=== PATIENT | male | born 1950 | race Asian ===

== ENCOUNTER 2018-08-09 07:13 | Emergency (ER) | payer MEDICARE, MEDICAID ==
[~2018-08-09] VITALS: Ht 149.9 cm; Wt 53.0 kg
[2018-08-09 10:21] LABS: BASOPHILS % 0.4 % (0.0-2.0); EOSINOPHILS % 3.3 % (0.0-5.0); HEMATOCRIT. 45.9 % (42.0-52.0); HEMOGLOBIN. 15.5 g/dL (14.0-18.0); LYMPHOCYTES % 23.2 % (20.0-50.0); MEAN CORPUSCULAR HEMOGLOBIN 32.1 pg (28.0-32.0); MEAN CORPUSCULAR VOLUME 94.9 fL (80.0-94.0); MONOCYTES % 6.5 % (2.0-8.0); NEUTROPHILS % 66.6 % (40.0-76.0); PLATELET 166 x1000/uL (130-400); RED BLOOD CELL COUNT 4.83 mill/uL (4.7-6.1); RED CELL DISTRIBUTION WIDTH 12.7 % (11.6-14.6)
[2018-08-09 10:27] LABS: CHLORIDE 107 mEq/L (98-107)
[2018-08-09 10:28] LABS: PROTHROMBIN TIME 10.3 sec (9.1-11.1)
[2018-08-09 13:15] VITALS: BP 116/56
== END 2018-08-09 13:15 | disposition home or self-care (01) ==
LOC: ER 07:37
DX: K94.21 Gastrostomy hemorrhage (principal); J44.9 Chronic obstructive pulmonary disease, unspecified; I10 Essential (primary) hypertension; K58.9 Irritable bowel syndrome, unspecified; G82.50 Quadriplegia, unspecified; K21.9 Gastro-esophageal reflux disease without esophagitis; M81.0 Age-related osteoporosis without current pathological fracture; J98.11 Atelectasis; Z88.2 Allergy status to sulfonamides; Z91.041 Radiographic dye allergy status; Y83.3 Surgical operation with formation of external stoma as the cause of abnormal reaction of the patient, or of later complication, without mention of misadventure at the time of the procedure; Y92.128 Other place in nursing home as the place of occurrence of the external cause
CPT/HCPCS: 36415; 71045; 93005; 99284

== ENCOUNTER 2022-01-14 11:16 | Inpatient (IN) | payer MEDICARE, MEDICAID ==
[~2022-01-14] VITALS: Ht 142.2 cm; Wt 53.1 kg
[2022-01-14] MEDS: IPRATROPIUM/ALBUTEROL 0.5-3(2.5)MG/3ML NEB HHN SCH (09:40)
[2022-01-14 12:19] LABS: BG BASE EXCESS 5.8 mmol/L (-2.0-2.0); BG CARBOXYHEMOGLOBIN 1.1 % (0.5-1.5); BG DEOXYHEMOGLOBIN 1.8 % (0.0-5.0); BG FRACTION INSPIRED OXYGEN 36; BG HCO3 ACT 33.8 mmol/L (22.0-26.0); BG METHEMOGLOBIN 0.4 % (0.0-1.5); BG OXYGEN SATURATION 98.2 % (92.0-98.5); BG OXYHEMOGLOBIN 96.7 % (94.0-97.0); BG PCO2 65.2 mmHg (35.0-45.0); BG PH 7.333 (7.350-7.450); BG SAMPLE SITE RIGHT BRACHIAL; BG TOTAL HEMOGLOBIN 13.7 g/dL (12.0-18.0); BG VENT MODE NASAL CANNULA
[2022-01-14] MEDS ORDERED: SODIUM CHLORIDE 0.9% 1,000 ML IV ONE (12:30)
[2022-01-14] MEDS ORDERED: LIDOCAINE HCL 1% 10 MG/ML 10ML VIAL ONE (12:48)
[2022-01-14 13:23] LABS: BASOPHILS % 0.2 % (0.0-2.0); EOSINOPHILS % 3.2 % (0.0-5.0); HEMATOCRIT. 42.1 % (42.0-52.0); HEMOGLOBIN. 13.2 g/dL (14.0-18.0); LYMPHOCYTES % 22.9 % (20.0-50.0); MEAN CORPUSCULAR HEMOGLOBIN 31.6 pg (28.0-32.0); MEAN CORPUSCULAR VOLUME 101.1 fL (80.0-94.0); MEAN PLATELET VOLUME 11.3 fl (7.4-10.4); MONOCYTES % 9.9 % (2.0-8.0); NEUTROPHILS % 63.8 % (40.0-76.0); PLATELET 154 x1000/uL (130-400); RED BLOOD CELL COUNT 4.16 mill/uL (4.7-6.1); RED CELL DISTRIBUTION WIDTH 15.9 % (11.6-14.6)
[2022-01-14 13:29] LABS: CHLORIDE 118 mEq/L (98-107)
[2022-01-14 13:32] LABS: PROTHROMBIN TIME 10.9 sec (9.6-11.0)
[2022-01-14 16:00] LABS: CLARITY URINE CLOUDY (CLEAR); COLOR URINE YELLOW (YELLOW); KETONES URINE NEGATIVE (NEGATIVE); LEUKOCYTE ESTERASE URINE 3+ (NEGATIVE); NITRITE URINE NEGATIVE (NEGATIVE); OCCULT BLOOD URINE TRACE (NEGATIVE); PH URINE 5.5 (4.5-8.0); PROTEIN URINE 1+ (NEGATIVE); SPECIFIC GRAVITY URINE 1.022 (1.005-1.030)
[2022-01-14] MEDS ORDERED: CEFTRIAXONE 1 G PREMIX 50 ML IV ONE (16:15)
[2022-01-14] MEDS ORDERED: MORPHINE SULFATE 2 MG/ML CPJ (NOT FOR IM USE) IV PRN (21:00)
[2022-01-14] MEDS ORDERED: ONDANSETRON HCL 4MG/2ML INJ IV PRN (21:00)
[2022-01-14] MEDS ORDERED: GUAIFENESIN 200MG/10ML SUGAR FREE UDC PO PRN (21:00)
[2022-01-14] MEDS ORDERED: DOCUSATE SODIUM 100MG CAPSULE PO PRN (21:00)
[2022-01-14] MEDS ORDERED: CLONIDINE 0.1MG TABLET PO PRN (21:00)
[2022-01-14] MEDS ORDERED: ACETAMINOPHEN 650MG SUPP PR PRN ×2 (21:00)
[2022-01-14] MEDS ORDERED: ACETAMINOPHEN 325MG TABLET PO PRN (21:00)
[2022-01-14] MEDS ORDERED: MAGNESIUM/ALUMINUM HYDROXIDE/SIMETHICONE 30ML UDC PO PRN (21:00)
[2022-01-14 22:00] VITALS: BP_SYST 124; BP_DIAS 73; BP_DIAS 75
[2022-01-14] MEDS: LACTATED RINGERS 1,000 ML IV SCH (23:28)
[2022-01-14] MEDS: ENOXAPARIN 40MG/0.4ML SYR SUBCUT SCH (23:28)
[2022-01-15] VITALS: BP 124/71
[2022-01-15 04:00] VITALS: BP 131/73
[2022-01-15] MEDS ORDERED: CEFTRIAXONE 1 G PREMIX 50 ML IV SCH (09:00)
[2022-01-15] MEDS: LACTATED RINGERS 1,000 ML IV SCH ×2 (09:17→17:46)
[2022-01-15] MEDS: IPRATROPIUM/ALBUTEROL 0.5-3(2.5)MG/3ML NEB HHN SCH ×3 (09:45→21:14)
[2022-01-15 11:58] LABS: HEMATOCRIT. 38.8 % (42.0-52.0); HEMOGLOBIN. 12.7 g/dL (14.0-18.0); MEAN CORPUSCULAR HEMOGLOBIN 32.1 pg (28.0-32.0); RED BLOOD CELL COUNT 3.96 mill/uL (4.7-6.1); RED CELL DISTRIBUTION WIDTH 15.3 % (11.6-14.6)
[2022-01-15 12:00] VITALS: BP 126/61
[2022-01-15 12:20] LABS: CHLORIDE 121 mEq/L (98-107)
[2022-01-15 12:32] LABS: BETA HYDROXYBUTYRATE 0.6 mMol/L (0.0-0.3); CREATINE KINASE 169 IU/L (39-308); HDL CHOLESTEROL 28 mg/dL (40-59); LDL CHOLESTEROL 77 mg/dL (5-100)
[2022-01-15 12:51] LABS: PLATELET 217 x1000/uL (130-400)
[2022-01-15 12:55] LABS: PLATELET ESTIMATE NORMAL
[2022-01-15 16:00] VITALS: BP 117/68
[2022-01-15] MEDS: CEFTRIAXONE 1,000 MG in DEXTROSE 5% WATER 50 ML IV SCH (17:46)
[2022-01-15] MEDS ORDERED: NALOXONE HCL 0.4MG/ML VIAL IV PRN (18:00)
[2022-01-15 20:00] VITALS: BP 143/70
[2022-01-15] MEDS: ENOXAPARIN 40MG/0.4ML SYR SUBCUT SCH (21:26)
[2022-01-15] MEDS: LACTULOSE 20G/30ML UDC PO SCH (22:12)
[2022-01-15] MEDS: RIFAXIMIN 550 MG TABLET PO SCH (23:25)
[2022-01-15 23:27] LABS: ETHANOL BLOOD < 10 mg/dL; T4 FREE 1.23 ng/dL (0.76-1.46)
[2022-01-15 23:37] LABS: FOLIC ACID (FOLATE) SERUM >20 ng/mL ng/mL (>5.38); VITAMIN B12 SERUM 630 pg/mL (211-911)
[2022-01-15 23:46] VITALS: BP 132/78
[2022-01-16] MEDS: IPRATROPIUM/ALBUTEROL 0.5-3(2.5)MG/3ML NEB HHN SCH ×4 (00:39→21:11)
[2022-01-16 04:00] VITALS: BP 131/75
[2022-01-16] MEDS: LACTATED RINGERS 1,000 ML IV SCH (05:25)
[2022-01-16] MEDS: LACTULOSE 20G/30ML UDC PO SCH ×3 (05:25→22:06)
[2022-01-16 06:34] LABS: BASOPHILS % 0.1 % (0.0-2.0); EOSINOPHILS % 1.2 % (0.0-5.0); HEMATOCRIT. 38.3 % (42.0-52.0); HEMOGLOBIN. 12.5 g/dL (14.0-18.0); LYMPHOCYTES % 8.2 % (20.0-50.0); MEAN CORPUSCULAR VOLUME 98.2 fL (80.0-94.0); MEAN PLATELET VOLUME 11.3 fl (7.4-10.4); MONOCYTES % 5.2 % (2.0-8.0); NEUTROPHILS % 85.3 % (40.0-76.0); PLATELET 150 x1000/uL (130-400); RED CELL DISTRIBUTION WIDTH 14.9 % (11.6-14.6)
[2022-01-16 06:44] LABS: CHLORIDE 121 mEq/L (98-107)
[2022-01-16 06:57] LABS: CREATINE KINASE 16 IU/L (39-308)
[2022-01-16] MEDS: POTASSIUM CHLORIDE 20MEQ/PACKET PO SCH ×2 (07:15→23:56)
[2022-01-16 08:00] VITALS: BP 137/77
[2022-01-16] MEDS ORDERED: POLYETHYLENE GLYCOL 3350 (17GM) 1 DOSE PACK PO SCH (09:00)
[2022-01-16] MEDS: RIFAXIMIN 550 MG TABLET PO SCH ×2 (09:50→22:06)
[2022-01-16 11:54] LABS: *AMPHETAMINES SCREEN URINE NEGATIVE (NEGATIVE); *BARBITURATES SCREEN URINE NEGATIVE (NEGATIVE); *BENZODIAZEPINES SCREEN URINE NEGATIVE (NEGATIVE); *COCAINE SCREEN URINE NEGATIVE (NEGATIVE); CANNABINOID URINE SCREEN NEGATIVE (NEGATIVE); METHADONE URINE SCREEN NEGATIVE (NEGATIVE); OPIATES URINE SCREEN NEGATIVE (NEGATIVE); PHENCYCLIDINE URINE SCREEN NEGATIVE (NEGATIVE)
[2022-01-16 12:00] VITALS: BP 134/71
[2022-01-16 16:00] VITALS: BP 135/75
[2022-01-16] MEDS: DEXTROSE 5% WATER 1,000 ML IV SCH ×2 (17:15→22:20)
[2022-01-16] MEDS: CEFTRIAXONE 1,000 MG in DEXTROSE 5% WATER 50 ML IV SCH (17:45)
[2022-01-16 20:00] VITALS: BP 124/48
[2022-01-16] MEDS: ENOXAPARIN 40MG/0.4ML SYR SUBCUT SCH (22:07)
[2022-01-16] MEDS ORDERED: POTASSIUM CHLORIDE 20MEQ/PACKET PO NR (23:30)
[2022-01-17] VITALS: BP 105/52
[2022-01-17] MEDS: ACETAMINOPHEN 325MG TABLET PO PRN ×2 (00:10→16:58)
[2022-01-17] MEDS: IPRATROPIUM/ALBUTEROL 0.5-3(2.5)MG/3ML NEB HHN SCH ×4 (02:38→20:01)
[2022-01-17] MEDS: DEXTROSE 5% WATER 1,000 ML IV SCH ×3 (03:15→23:26)
[2022-01-17 04:00] VITALS: BP 112/55
[2022-01-17] MEDS: LACTULOSE 20G/30ML UDC PO SCH ×3 (06:05→21:26)
[2022-01-17 08:00] VITALS: BP 124/58
[2022-01-17] MEDS: RIFAXIMIN 550 MG TABLET PO SCH ×2 (08:29→21:26)
[2022-01-17 09:28] LABS: BASOPHILS % 0.2 % (0.0-2.0); EOSINOPHILS % 1.8 % (0.0-5.0); HEMATOCRIT. 36.3 % (42.0-52.0); HEMOGLOBIN. 11.5 g/dL (14.0-18.0); LYMPHOCYTES % 10.2 % (20.0-50.0); MEAN CORPUSCULAR HEMOGLOBIN 31.4 pg (28.0-32.0); MEAN PLATELET VOLUME 10.8 fl (7.4-10.4); MONOCYTES % 3.8 % (2.0-8.0); PLATELET 119 x1000/uL (130-400); RED BLOOD CELL COUNT 3.66 mill/uL (4.7-6.1); RED CELL DISTRIBUTION WIDTH 15.4 % (11.6-14.6)
[2022-01-17 09:36] LABS: CHLORIDE 119 mEq/L (98-107)
[2022-01-17 12:00] VITALS: BP 125/40
[2022-01-17 16:00] VITALS: BP 112/54
[2022-01-17] MEDS: CEFTRIAXONE 1,000 MG in DEXTROSE 5% WATER 50 ML IV SCH (17:01)
[2022-01-17 20:00] VITALS: BP 102/59
[2022-01-17] MEDS: ENOXAPARIN 40MG/0.4ML SYR SUBCUT SCH (21:26)
[2022-01-18] VITALS: BP 110/84
[2022-01-18] MEDS: IPRATROPIUM/ALBUTEROL 0.5-3(2.5)MG/3ML NEB HHN SCH ×4 (01:23→20:38)
[2022-01-18 04:00] VITALS: BP 115/60
[2022-01-18] MEDS: LACTULOSE 20G/30ML UDC PO SCH ×3 (05:47→22:00)
[2022-01-18 07:32] LABS: BASOPHILS % 0.2 % (0.0-2.0); EOSINOPHILS % 4.6 % (0.0-5.0); HEMATOCRIT. 34.9 % (42.0-52.0); HEMOGLOBIN. 11.7 g/dL (14.0-18.0); LYMPHOCYTES % 10.9 % (20.0-50.0); MEAN CORPUSCULAR HEMOGLOBIN 31.9 pg (28.0-32.0); MEAN CORPUSCULAR VOLUME 95.1 fL (80.0-94.0); MEAN PLATELET VOLUME 11.7 fl (7.4-10.4); MONOCYTES % 4.3 % (2.0-8.0); PLATELET 107 x1000/uL (130-400); RED BLOOD CELL COUNT 3.67 mill/uL (4.7-6.1); RED CELL DISTRIBUTION WIDTH 14.9 % (11.6-14.6)
[2022-01-18 07:49] LABS: CHLORIDE 116 mEq/L (98-107)
[2022-01-18 08:00] VITALS: BP 114/67
[2022-01-18] MEDS ORDERED: LEVO500T90 MT (08:00)
[2022-01-18] MEDS: RIFAXIMIN 550 MG TABLET PO SCH ×2 (08:49→21:00)
[2022-01-18] MEDS: DEXTROSE 5% WATER 1,000 ML IV SCH ×2 (08:49→22:48)
[2022-01-18] MEDS ORDERED: POTASSIUM CHLORIDE 20MEQ TABLET SR PO SCH (09:00)
[2022-01-18] MEDS ORDERED: POTASSIUM CHLORIDE 20MEQ/PACKET GT NR (09:30)
[2022-01-18 12:00] VITALS: BP 120/70
[2022-01-18 12:10] LABS: PHOSPHORUS 2.2 mg/dL (2.5-4.9)
[2022-01-18 16:00] VITALS: BP 140/60
[2022-01-18 20:00] VITALS: BP 103/62
[2022-01-18] MEDS: ENOXAPARIN 40MG/0.4ML SYR SUBCUT SCH (22:07)
[2022-01-19] VITALS: BP 100/60
[2022-01-19] MEDS: IPRATROPIUM/ALBUTEROL 0.5-3(2.5)MG/3ML NEB HHN SCH ×4 (01:05→21:53)
[2022-01-19 04:00] VITALS: BP 119/58
[2022-01-19] MEDS: LACTULOSE 20G/30ML UDC PO SCH ×2 (05:24→14:00)
[2022-01-19 07:10] LABS: BASOPHILS % 0.2 % (0.0-2.0); EOSINOPHILS % 2.7 % (0.0-5.0); HEMATOCRIT. 33.3 % (42.0-52.0); LYMPHOCYTES % 10.7 % (20.0-50.0); MEAN CORPUSCULAR HEMOGLOBIN 31.6 pg (28.0-32.0); MEAN CORPUSCULAR VOLUME 95.7 fL (80.0-94.0); MEAN PLATELET VOLUME 11.8 fl (7.4-10.4); MONOCYTES % 5.2 % (2.0-8.0); NEUTROPHILS % 81.2 % (40.0-76.0); PLATELET 129 x1000/uL (130-400); RED BLOOD CELL COUNT 3.47 mill/uL (4.7-6.1); RED CELL DISTRIBUTION WIDTH 14.1 % (11.6-14.6)
[2022-01-19 07:13] LABS: CHLORIDE 113 mEq/L (98-107)
[2022-01-19 08:00] VITALS: BP_SYST 115; BP_SYST 125; BP_DIAS 58; BP_DIAS 62
[2022-01-19] MEDS: RIFAXIMIN 550 MG TABLET PO SCH (08:16)
[2022-01-19] MEDS: LEVOFLOXACIN 500MG TABLET PO SCH (08:16)
[2022-01-19 08:34] LABS: PHOSPHORUS 1.7 mg/dL (2.5-4.9)
[2022-01-19] MEDS: KCL 20MEQ/100ML PREMIX 100 ML IV SCH ×2 (11:17→14:06)
[2022-01-19 12:00] VITALS: BP 115/58
[2022-01-19] MEDS ORDERED: POTASSIUM PHOS,M-BASIC-D-BASIC 15 MMOL in DEXT 5% WATER 245 ML IV SCH (12:00)
[2022-01-19] MEDS: DEXTROSE 5% WATER 1,000 ML IV SCH ×2 (14:07→20:05)
[2022-01-19 16:00] VITALS: BP 140/71
[2022-01-19] MEDS: BLOOD SUGAR DIAGNOSTIC STRIP TEST SCH (18:59)
[2022-01-19 20:00] VITALS: BP 146/76
[2022-01-19] MEDS: PIPERACILLIN/TAZOBACTAM 3.375 G in DEXTROSE 5% WATER 50 ML IV SCH (21:27)
[2022-01-19] MEDS: ENOXAPARIN 40MG/0.4ML SYR SUBCUT SCH (21:27)
[2022-01-19] MEDS: NYSTATIN 100,000 UNITS/ML 5ML UDC SSP SCH (21:27)
[2022-01-19] MEDS: LACTULOSE 20G/30ML UDC PR SCH (22:22)
[2022-01-20] VITALS (7 sets, daily range): BP systolic 100–144; BP diastolic 20–78
[2022-01-20] MEDS: IPRATROPIUM/ALBUTEROL 0.5-3(2.5)MG/3ML NEB HHN SCH ×4 (01:37→20:03)
[2022-01-20] MEDS: PIPERACILLIN/TAZOBACTAM 3.375 G in DEXTROSE 5% WATER 50 ML IV SCH ×3 (05:22→21:14)
[2022-01-20] MEDS: BLOOD SUGAR DIAGNOSTIC STRIP TEST SCH ×4 (05:22→18:14)
[2022-01-20] MEDS: LACTULOSE 20G/30ML UDC PR SCH ×3 (05:22→21:14)
[2022-01-20] MEDS: DEXTROSE 5% WATER 1,000 ML IV SCH ×2 (05:23→16:05)
[2022-01-20 06:24] LABS: BASOPHILS % 0.1 % (0.0-2.0); EOSINOPHILS % 1.6 % (0.0-5.0); HEMATOCRIT. 35.3 % (42.0-52.0); HEMOGLOBIN. 11.9 g/dL (14.0-18.0); LYMPHOCYTES % 9.1 % (20.0-50.0); MEAN CORPUSCULAR HEMOGLOBIN 32.2 pg (28.0-32.0); MEAN CORPUSCULAR VOLUME 95.3 fL (80.0-94.0); MEAN PLATELET VOLUME 11.4 fl (7.4-10.4); NEUTROPHILS % 82.2 % (40.0-76.0); PLATELET 139 x1000/uL (130-400); RED CELL DISTRIBUTION WIDTH 14.1 % (11.6-14.6)
[2022-01-20 07:06] LABS: CHLORIDE 111 mEq/L (98-107)
[2022-01-20 07:16] LABS: PHOSPHORUS 2.1 mg/dL (2.5-4.9)
[2022-01-20] MEDS ORDERED: LIDOCAINE HCL/PF 1% 10 MG/ML 5ML VIAL ONE (09:18)
[2022-01-20 09:35] LABS: BG BASE EXCESS 3.8 mmol/L (-2.0-2.0); BG CARBOXYHEMOGLOBIN 0.3 % (0.5-1.5); BG FRACTION INSPIRED OXYGEN 100; BG HCO3 ACT 29.5 mmol/L (22.0-26.0); BG METHEMOGLOBIN 0.7 % (0.0-1.5); BG OXYGEN SATURATION 91.9 % (92.0-98.5); BG PCO2 49.2 mmHg (35.0-45.0); BG PH 7.396 (7.350-7.450); BG PO2 64.7 mmHg (75.0-100.0); BG SAMPLE SITE RIGHT RADIAL; BG TOTAL HEMOGLOBIN 12.9 g/dL (12.0-18.0); BG VENT MODE MASK - NRB
[2022-01-20] MEDS: NYSTATIN 100,000 UNITS/ML 5ML UDC SSP SCH ×2 (10:53→21:15)
[2022-01-20] MEDS: PHYTONADIONE 10MG/ML AMP SUBCUT SCH (10:54)
[2022-01-20] MEDS: LEVOFLOXACIN 500MG TABLET PO SCH (10:56)
[2022-01-20] MEDS ORDERED: POTASSIUM CHLORIDE 20MEQ/PACKET PO NR (13:55)
[2022-01-20] MEDS ORDERED: POTASSIUM CHLORIDE INJ 40 MEQ in DEXT 5% WATER 250 ML IV ONE (16:30)
[2022-01-20] MEDS: ACETYLCYSTEINE 100MG/ML 10% VIAL 4ML INH SCH (16:49)
[2022-01-20] MEDS: KCL 20MEQ/100ML X 2 FOR TOTAL KCL 40MEQ/200ML IV SCH ×2 (18:50→20:35)
[2022-01-20] MEDS ORDERED: TOTAL PARENTERAL NUTRITION 1,400 ML IV SCH (21:00)
[2022-01-20] MEDS: ENOXAPARIN 40MG/0.4ML SYR SUBCUT SCH (21:14)
[2022-01-20] MEDS: FAT EMULSIONS 500 ML IV SCH (21:15)
[2022-01-21] VITALS (13 sets, daily range): BP systolic 95–126; BP diastolic 47–97
[2022-01-21] MEDS: ACETYLCYSTEINE 100MG/ML 10% VIAL 4ML INH SCH ×3 (00:44→16:44)
[2022-01-21] MEDS: IPRATROPIUM/ALBUTEROL 0.5-3(2.5)MG/3ML NEB HHN SCH ×6 (00:46→20:51)
[2022-01-21] MEDS: DEXTROSE 5% WATER 1,000 ML IV SCH (02:05)
[2022-01-21] MEDS: LACTULOSE 20G/30ML UDC PR SCH ×3 (06:00→21:59)
[2022-01-21] MEDS: PIPERACILLIN/TAZOBACTAM 3.375 G in DEXTROSE 5% WATER 50 ML IV SCH ×3 (06:14→21:58)
[2022-01-21] MEDS: BLOOD SUGAR DIAGNOSTIC STRIP TEST SCH ×4 (06:15→18:30)
[2022-01-21 06:20] LABS: CHLORIDE 112 mEq/L (98-107)
[2022-01-21 06:31] LABS: BASOPHILS % 0.3 % (0.0-2.0); EOSINOPHILS % 3.3 % (0.0-5.0); HEMATOCRIT. 36.9 % (42.0-52.0); HEMOGLOBIN. 12.2 g/dL (14.0-18.0); LYMPHOCYTES % 9.3 % (20.0-50.0); MEAN CORPUSCULAR HEMOGLOBIN 32.5 pg (28.0-32.0); MEAN CORPUSCULAR VOLUME 98.1 fL (80.0-94.0); MEAN PLATELET VOLUME 11.2 fl (7.4-10.4); MONOCYTES % 6.7 % (2.0-8.0); NEUTROPHILS % 80.4 % (40.0-76.0); PLATELET 151 x1000/uL (130-400); RED BLOOD CELL COUNT 3.76 mill/uL (4.7-6.1); RED CELL DISTRIBUTION WIDTH 14.4 % (11.6-14.6)
[2022-01-21 06:43] LABS: PHOSPHORUS 1.3 mg/dL (2.5-4.9)
[2022-01-21 07:52] LABS: BG BASE EXCESS -0.1 mmol/L (-2.0-2.0); BG CARBOXYHEMOGLOBIN 0.3 % (0.5-1.5); BG DEOXYHEMOGLOBIN 1.2 % (0.0-5.0); BG FRACTION INSPIRED OXYGEN 100; BG HCO3 ACT 28.4 mmol/L (22.0-26.0); BG METHEMOGLOBIN 0.4 % (0.0-1.5); BG OXYGEN SATURATION 98.8 % (92.0-98.5); BG OXYHEMOGLOBIN 98.1 % (94.0-97.0); BG PH 7.251 (7.350-7.450); BG PO2 179.5 mmHg (75.0-100.0); BG SAMPLE SITE RIGHT RADIAL; BG TOTAL HEMOGLOBIN 11.8 g/dL (12.0-18.0); BG VENT MODE MASK - NRB
[2022-01-21] MEDS: LEVOFLOXACIN 500MG TABLET PO SCH (09:00)
[2022-01-21] MEDS: SODIUM CHLORIDE 3% FOR INH 4ML UD NEB INH SCH ×3 (09:19→16:44)
[2022-01-21] MEDS: NYSTATIN 100,000 UNITS/ML 5ML UDC SSP SCH ×2 (10:57→21:57)
[2022-01-21 14:55] LABS: BG BASE EXCESS 4.8 mmol/L (-2.0-2.0); BG CARBOXYHEMOGLOBIN 0.3 % (0.5-1.5); BG DEOXYHEMOGLOBIN 4.2 % (0.0-5.0); BG FRACTION INSPIRED OXYGEN 36; BG HCO3 ACT 29.8 mmol/L (22.0-26.0); BG OXYGEN SATURATION 95.8 % (92.0-98.5); BG OXYHEMOGLOBIN 95.5 % (94.0-97.0); BG PCO2 45.9 mmHg (35.0-45.0); BG PO2 79.2 mmHg (75.0-100.0); BG SAMPLE SITE RIGHT RADIAL; BG TOTAL HEMOGLOBIN 11.2 g/dL (12.0-18.0); BG VENT MODE NASAL CANNULA
[2022-01-21] MEDS ORDERED: TOTAL PARENTERAL NUTRITION 1,400 ML IV SCH (21:00)
[2022-01-21] MEDS: ENOXAPARIN 40MG/0.4ML SYR SUBCUT SCH (21:58)
[2022-01-22] VITALS (13 sets, daily range): BP systolic 85–120; BP diastolic 49–65
[2022-01-22] MEDS: BLOOD SUGAR DIAGNOSTIC STRIP TEST SCH ×5 (00:07→23:20)
[2022-01-22] MEDS: IPRATROPIUM/ALBUTEROL 0.5-3(2.5)MG/3ML NEB HHN SCH ×6 (00:20→23:00)
[2022-01-22] MEDS: ACETYLCYSTEINE 100MG/ML 10% VIAL 4ML INH SCH ×4 (00:20→22:00)
[2022-01-22 06:12] LABS: CHLORIDE 110 mEq/L (98-107)
[2022-01-22 06:17] LABS: PHOSPHORUS 2.1 mg/dL (2.5-4.9)
[2022-01-22 06:19] LABS: BASOPHILS % 0.1 % (0.0-2.0); EOSINOPHILS % 5.7 % (0.0-5.0); LYMPHOCYTES % 15.6 % (20.0-50.0); MEAN CORPUSCULAR HEMOGLOBIN 32.2 pg (28.0-32.0); MEAN CORPUSCULAR VOLUME 97.9 fL (80.0-94.0); MEAN PLATELET VOLUME 11.4 fl (7.4-10.4); NEUTROPHILS % 70.6 % (40.0-76.0); PLATELET 123 x1000/uL (130-400); RED BLOOD CELL COUNT 3.01 mill/uL (4.7-6.1); RED CELL DISTRIBUTION WIDTH 14.2 % (11.6-14.6)
[2022-01-22] MEDS: PIPERACILLIN/TAZOBACTAM 3.375 G in DEXTROSE 5% WATER 50 ML IV SCH (06:31)
[2022-01-22] MEDS: LACTULOSE 20G/30ML UDC PR SCH ×4 (06:31→20:41)
[2022-01-22 07:54] LABS: HEMOGLOBIN. 9.7 g/dL (14.0-18.0)
[2022-01-22 07:55] LABS: HEMATOCRIT. 29.4 % (42.0-52.0)
[2022-01-22] MEDS ORDERED: DEXTROSE 50% WATER 50ML SYRINGE IV PRN ×2 (08:00→20:00)
[2022-01-22 08:28] LABS: BG BASE EXCESS 3.8 mmol/L (-2.0-2.0); BG CARBOXYHEMOGLOBIN 0.1 % (0.5-1.5); BG DEOXYHEMOGLOBIN 6.2 % (0.0-5.0); BG FRACTION INSPIRED OXYGEN 21; BG HCO3 ACT 31.4 mmol/L (22.0-26.0); BG METHEMOGLOBIN 0.3 % (0.0-1.5); BG OXYGEN SATURATION 93.8 % (92.0-98.5); BG OXYHEMOGLOBIN 93.4 % (94.0-97.0); BG PH 7.308 (7.350-7.450); BG PO2 70.7 mmHg (75.0-100.0); BG SAMPLE SITE RIGHT RADIAL; BG TOTAL HEMOGLOBIN 10.6 g/dL (12.0-18.0); BG VENT MODE ROOM AIR
[2022-01-22] MEDS: LEVOFLOXACIN 500MG TABLET PO SCH ×2 (09:00→09:04)
[2022-01-22] MEDS: NYSTATIN 100,000 UNITS/ML 5ML UDC SSP SCH ×2 (09:03→20:41)
[2022-01-22] MEDS: INSULIN LISPRO 100 UNITS/ML SUBCUT SCH ×3 (12:17→23:32)
[2022-01-22] MEDS ORDERED: ENAL2.5T39 PO (12:45)
[2022-01-22] MEDS ORDERED: OMEP20TA15 PO (12:46)
[2022-01-22] MEDS ORDERED: SUCR1TAB30 PO (12:49)
[2022-01-22] MEDS ORDERED: MULT-380 MT (12:49)
[2022-01-22] MEDS ORDERED: TRIH2TAB3 PO (12:52)
[2022-01-22] MEDS ORDERED: SODIUM CHLORIDE 3% FOR INH 15ML VIAL NEB INH SCH (14:30)
[2022-01-22] MEDS: FAT EMULSIONS 500 ML IV SCH (20:37)
[2022-01-22] MEDS: PANTOPRAZOLE SODIUM 40 MG/VIAL IV SCH (20:38)
[2022-01-22] MEDS ORDERED: TOTAL PARENTERAL NUTRITION 1,400 ML IV SCH (21:00)
[2022-01-23] VITALS (14 sets, daily range): BP systolic 94–133; BP diastolic 22–99
[2022-01-23] MEDS: SODIUM CHLORIDE 3% FOR INH 4ML UD NEB INH SCH ×4 (00:53→21:13)
[2022-01-23] MEDS: IPRATROPIUM/ALBUTEROL 0.5-3(2.5)MG/3ML NEB HHN SCH ×5 (03:00→21:07)
[2022-01-23] MEDS: BLOOD SUGAR DIAGNOSTIC STRIP TEST SCH ×3 (05:17→17:24)
[2022-01-23] MEDS: LACTULOSE 20G/30ML UDC PR SCH ×3 (05:17→22:00)
[2022-01-23] MEDS: INSULIN LISPRO 100 UNITS/ML SUBCUT SCH ×3 (05:20→18:08)
[2022-01-23] MEDS ORDERED: BLOOD SUGAR DIAGNOSTIC STRIP TEST SCH (07:10)
[2022-01-23 07:40] LABS: BASOPHILS % 0.1 % (0.0-2.0); EOSINOPHILS % 5.4 % (0.0-5.0); HEMATOCRIT. 30.4 % (42.0-52.0); HEMOGLOBIN. 10.7 g/dL (14.0-18.0); LYMPHOCYTES % 11.3 % (20.0-50.0); MEAN CORPUSCULAR HEMOGLOBIN 33.3 pg (28.0-32.0); MEAN CORPUSCULAR VOLUME 94.4 fL (80.0-94.0); MONOCYTES % 6.9 % (2.0-8.0); NEUTROPHILS % 76.3 % (40.0-76.0); PLATELET 167 x1000/uL (130-400); RED BLOOD CELL COUNT 3.23 mill/uL (4.7-6.1)
[2022-01-23 07:42] LABS: CHLORIDE 105 mEq/L (98-107)
[2022-01-23 07:51] LABS: PHOSPHORUS 1.2 mg/dL (2.5-4.9)
[2022-01-23] MEDS: ACETYLCYSTEINE 100MG/ML 10% VIAL 4ML INH SCH ×2 (07:52→15:52)
[2022-01-23] MEDS: LEVOFLOXACIN 500MG TABLET PO SCH (08:52)
[2022-01-23] MEDS: PANTOPRAZOLE SODIUM 40 MG/VIAL IV SCH ×2 (08:52→22:04)
[2022-01-23] MEDS: NYSTATIN 100,000 UNITS/ML 5ML UDC SSP SCH ×2 (08:52→21:00)
[2022-01-23] MEDS ORDERED: POTASSIUM PHOS,M-BASIC-D-BASIC 15 MMOL in SODIUM CHLORIDE 0.9% 250 ML IV SCH (12:00)
[2022-01-23] MEDS ORDERED: VANCOMYCIN 1G PREMIX 200 ML IV SCH (13:00)
[2022-01-23] MEDS: METRONIDAZOLE 500 MG PREMIX 100 ML IV SCH (22:06)
[2022-01-23] MEDS: TOTAL PARENTERAL NUTRITION 1,400 ML IV SCH (22:07)
[2022-01-23] MEDS: VANCOMYCIN 500MG PREMIX 100 ML IV SCH (23:47)
[2022-01-24] VITALS (15 sets, daily range): BP systolic 80–121; BP diastolic 47–80
[2022-01-24] MEDS: ACETYLCYSTEINE 100MG/ML 10% VIAL 4ML INH SCH ×3 (00:08→16:26)
[2022-01-24] MEDS: IPRATROPIUM/ALBUTEROL 0.5-3(2.5)MG/3ML NEB HHN SCH ×6 (00:08→21:09)
[2022-01-24] MEDS: SODIUM CHLORIDE 3% FOR INH 4ML UD NEB INH SCH ×4 (04:16→21:09)
[2022-01-24] MEDS: LACTULOSE 20G/30ML UDC PR SCH ×3 (06:00→21:52)
[2022-01-24] MEDS: INSULIN LISPRO 100 UNITS/ML SUBCUT SCH ×4 (06:00→18:00)
[2022-01-24] MEDS: BLOOD SUGAR DIAGNOSTIC STRIP TEST SCH ×4 (06:46→18:02)
[2022-01-24 07:47] LABS: BASOPHILS % 0.2 % (0.0-2.0); EOSINOPHILS % 4.3 % (0.0-5.0); HEMATOCRIT. 26.8 % (42.0-52.0); HEMOGLOBIN. 9.3 g/dL (14.0-18.0); MEAN CORPUSCULAR HEMOGLOBIN 32.7 pg (28.0-32.0); MEAN CORPUSCULAR VOLUME 94.4 fL (80.0-94.0); MEAN PLATELET VOLUME 10.7 fl (7.4-10.4); MONOCYTES % 7.8 % (2.0-8.0); NEUTROPHILS % 76.7 % (40.0-76.0); PLATELET 160 x1000/uL (130-400); RED BLOOD CELL COUNT 2.84 mill/uL (4.7-6.1); RED CELL DISTRIBUTION WIDTH 14.3 % (11.6-14.6)
[2022-01-24 07:48] LABS: CHLORIDE 109 mEq/L (98-107)
[2022-01-24 07:53] LABS: PHOSPHORUS 1.7 mg/dL (2.5-4.9)
[2022-01-24] MEDS: LEVOFLOXACIN 500MG TABLET PO SCH (09:00)
[2022-01-24] MEDS: PANTOPRAZOLE SODIUM 40 MG/VIAL IV SCH ×2 (09:29→21:47)
[2022-01-24] MEDS: NYSTATIN 100,000 UNITS/ML 5ML UDC SSP SCH ×2 (09:29→21:51)
[2022-01-24] MEDS: METRONIDAZOLE 500 MG PREMIX 100 ML IV SCH ×2 (09:32→21:46)
[2022-01-24 12:25] LABS: BG BASE EXCESS 3.3 mmol/L (-2.0-2.0); BG CARBOXYHEMOGLOBIN 0.3 % (0.5-1.5); BG DEOXYHEMOGLOBIN 18.2 % (0.0-5.0); BG HCO3 ACT 29.4 mmol/L (22.0-26.0); BG METHEMOGLOBIN 0.8 % (0.0-1.5); BG OXYGEN SATURATION 81.6 % (92.0-98.5); BG OXYHEMOGLOBIN 80.7 % (94.0-97.0); BG PCO2 53.2 mmHg (35.0-45.0); BG PH 7.361 (7.350-7.450); BG SAMPLE SITE RIGHT RADIAL; BG TOTAL HEMOGLOBIN 9.3 g/dL (12.0-18.0); BG VENT MODE ROOM AIR
[2022-01-24] MEDS: VANCOMYCIN 500MG PREMIX 100 ML IV SCH (12:39)
[2022-01-24] MEDS: CEFEPIME 1,000 MG in DEXTROSE 5% WATER 50 ML IV SCH (18:30)
[2022-01-24] MEDS: FAT EMULSIONS 250 ML IV SCH (21:47)
[2022-01-24] MEDS: TOTAL PARENTERAL NUTRITION 1,400 ML IV SCH (21:51)
[2022-01-25] VITALS (10 sets, daily range): BP systolic 70–129; BP diastolic 26–67
[2022-01-25] MEDS: BLOOD SUGAR DIAGNOSTIC STRIP TEST SCH ×3 (00:05→17:58)
[2022-01-25] MEDS: VANCOMYCIN 500MG PREMIX 100 ML IV SCH (00:05)
[2022-01-25] MEDS: ACETYLCYSTEINE 100MG/ML 10% VIAL 4ML INH SCH ×3 (00:58→14:00)
[2022-01-25] MEDS: IPRATROPIUM/ALBUTEROL 0.5-3(2.5)MG/3ML NEB HHN SCH ×6 (00:58→20:53)
[2022-01-25] MEDS: FAT EMULSIONS 250 ML IV SCH (02:41)
[2022-01-25] MEDS: SODIUM CHLORIDE 3% FOR INH 4ML UD NEB INH SCH ×4 (04:48→20:50)
[2022-01-25] MEDS: LACTULOSE 20G/30ML UDC PR SCH ×3 (05:16→22:00)
[2022-01-25] MEDS: PANTOPRAZOLE SODIUM 40 MG/VIAL IV SCH ×2 (08:55→21:53)
[2022-01-25] MEDS: METRONIDAZOLE 500 MG PREMIX 100 ML IV SCH ×2 (08:56→21:54)
[2022-01-25 09:32] LABS: CHLORIDE 106 mEq/L (98-107)
[2022-01-25 09:39] LABS: PHOSPHORUS 1.5 mg/dL (2.5-4.9)
[2022-01-25 10:12] LABS: BASOPHILS % 0.3 % (0.0-2.0); HEMATOCRIT. 26.3 % (42.0-52.0); HEMOGLOBIN. 9.7 g/dL (14.0-18.0); LYMPHOCYTES % 12.2 % (20.0-50.0); MEAN CORPUSCULAR HEMOGLOBIN 34.9 pg (28.0-32.0); MEAN CORPUSCULAR VOLUME 94.8 fL (80.0-94.0); MEAN PLATELET VOLUME 10.3 fl (7.4-10.4); MONOCYTES % 6.6 % (2.0-8.0); NEUTROPHILS % 75.9 % (40.0-76.0); PLATELET 192 x1000/uL (130-400); RED BLOOD CELL COUNT 2.77 mill/uL (4.7-6.1); RED CELL DISTRIBUTION WIDTH 14.1 % (11.6-14.6)
[2022-01-25] MEDS: CEFEPIME 1,000 MG in DEXTROSE 5% WATER 50 ML IV SCH ×2 (10:17→21:53)
[2022-01-25] MEDS: INSULIN LISPRO 100 UNITS/ML SUBCUT SCH ×3 (11:49→18:00)
[2022-01-25] MEDS: VANCOMYCIN 750MG PREMIX 150 ML IV SCH (12:01)
[2022-01-25 12:44] LABS: TOTAL IRON BINDING CAPACITY 215 ug/dL (250-450)
[2022-01-25] MEDS ORDERED: POTASSIUM PHOS,M-BASIC-D-BASIC 30 MMOL in DEXT 5% WATER 500 ML IV ONE (13:00)
[2022-01-25 13:47] LABS: BG BASE EXCESS 5.3 mmol/L (-2.0-2.0); BG CARBOXYHEMOGLOBIN 0.3 % (0.5-1.5); BG DEOXYHEMOGLOBIN 2.8 % (0.0-5.0); BG FRACTION INSPIRED OXYGEN 34; BG HCO3 ACT 31.3 mmol/L (22.0-26.0); BG OXYGEN SATURATION 97.2 % (92.0-98.5); BG OXYHEMOGLOBIN 96.9 % (94.0-97.0); BG PCO2 53.3 mmHg (35.0-45.0); BG PH 7.386 (7.350-7.450); BG PO2 100.4 mmHg (75.0-100.0); BG SAMPLE SITE RIGHT BRACHIAL; BG TOTAL HEMOGLOBIN 9.7 g/dL (12.0-18.0); BG VENT MODE NASAL CANNULA
[2022-01-25] MEDS: TOTAL PARENTERAL NUTRITION 1,400 ML IV SCH (22:05)
[2022-01-26] VITALS (12 sets, daily range): BP systolic 92–133; BP diastolic 30–85
[2022-01-26] MEDS: BLOOD SUGAR DIAGNOSTIC STRIP TEST SCH ×4 (00:01→17:46)
[2022-01-26] MEDS: VANCOMYCIN 750MG PREMIX 150 ML IV SCH ×3 (00:01→23:54)
[2022-01-26] MEDS: IPRATROPIUM/ALBUTEROL 0.5-3(2.5)MG/3ML NEB HHN SCH ×6 (00:48→20:17)
[2022-01-26] MEDS: SODIUM CHLORIDE 3% FOR INH 4ML UD NEB INH SCH ×3 (04:10→15:55)
[2022-01-26] MEDS: INSULIN LISPRO 100 UNITS/ML SUBCUT SCH ×4 (06:00→17:46)
[2022-01-26] MEDS: LACTULOSE 20G/30ML UDC PR SCH ×3 (06:00→21:14)
[2022-01-26 08:03] LABS: BASOPHILS % 0.2 % (0.0-2.0); EOSINOPHILS % 6.4 % (0.0-5.0); HEMATOCRIT. 25.2 % (42.0-52.0); HEMOGLOBIN. 8.6 g/dL (14.0-18.0); LYMPHOCYTES % 12.6 % (20.0-50.0); MEAN CORPUSCULAR VOLUME 94.3 fL (80.0-94.0); MEAN PLATELET VOLUME 10.3 fl (7.4-10.4); MONOCYTES % 6.8 % (2.0-8.0); PLATELET 163 x1000/uL (130-400); RED BLOOD CELL COUNT 2.68 mill/uL (4.7-6.1); RED CELL DISTRIBUTION WIDTH 14.1 % (11.6-14.6)
[2022-01-26] MEDS: PANTOPRAZOLE SODIUM 40 MG/VIAL IV SCH ×2 (08:28→21:14)
[2022-01-26] MEDS: METRONIDAZOLE 500 MG PREMIX 100 ML IV SCH ×2 (08:28→21:14)
[2022-01-26 08:34] LABS: CHLORIDE 107 mEq/L (98-107)
[2022-01-26 08:39] LABS: PHOSPHORUS 2.2 mg/dL (2.5-4.9)
[2022-01-26] MEDS: CEFEPIME 1,000 MG in DEXTROSE 5% WATER 50 ML IV SCH ×2 (09:58→21:14)
[2022-01-26] MEDS ORDERED: POTASSIUM PHOS,M-BASIC-D-BASIC 20 MMOL in DEXT 5% WATER 243.3333 ML IV ONE (11:00)
[2022-01-26] MEDS: FERROUS SULFATE 325MG TABLET PO SCH ×2 (11:30→17:00)
[2022-01-26 14:31] LABS: BG BASE EXCESS 6.6 mmol/L (-2.0-2.0); BG CARBOXYHEMOGLOBIN 0.8 % (0.5-1.5); BG FRACTION INSPIRED OXYGEN 28; BG HCO3 ACT 34.8 mmol/L (22.0-26.0); BG METHEMOGLOBIN 0.2 % (0.0-1.5); BG OXYGEN SATURATION 44.4 % (92.0-98.5); BG PCO2 72.9 mmHg (35.0-45.0); BG PH 7.297 (7.350-7.450); BG PO2 < 30.3 mmHg (75.0-100.0); BG SAMPLE SITE RIGHT BRACHIAL; BG TOTAL HEMOGLOBIN 10.3 g/dL (12.0-18.0); BG VENT MODE NASAL CANNULA
[2022-01-26 15:54] LABS: BG BASE EXCESS 5.4 mmol/L (-2.0-2.0); BG CARBOXYHEMOGLOBIN 0.3 % (0.5-1.5); BG DEOXYHEMOGLOBIN 3.6 % (0.0-5.0); BG FRACTION INSPIRED OXYGEN 32; BG HCO3 ACT 31.2 mmol/L (22.0-26.0); BG METHEMOGLOBIN 0.1 % (0.0-1.5); BG OXYGEN SATURATION 96.4 % (92.0-98.5); BG PCO2 52.4 mmHg (35.0-45.0); BG PH 7.393 (7.350-7.450); BG SAMPLE SITE LEFT RADIAL; BG TOTAL HEMOGLOBIN 9.8 g/dL (12.0-18.0); BG VENT MODE NASAL CANNULA
[2022-01-26] MEDS: TOTAL PARENTERAL NUTRITION 1,400 ML IV SCH (21:13)
[2022-01-27] VITALS (12 sets, daily range): BP systolic 99–126; BP diastolic 38–87
[2022-01-27] MEDS: IPRATROPIUM/ALBUTEROL 0.5-3(2.5)MG/3ML NEB HHN SCH ×6 (00:20→20:31)
[2022-01-27] MEDS: LACTULOSE 20G/30ML UDC PR SCH ×3 (05:36→23:49)
[2022-01-27] MEDS: INSULIN LISPRO 100 UNITS/ML SUBCUT SCH ×5 (05:36→23:49)
[2022-01-27] MEDS: BLOOD SUGAR DIAGNOSTIC STRIP TEST SCH ×5 (05:36→23:49)
[2022-01-27 07:20] LABS: BASOPHILS % 0.3 % (0.0-2.0); EOSINOPHILS % 6.7 % (0.0-5.0); HEMOGLOBIN. 8.7 g/dL (14.0-18.0); LYMPHOCYTES % 10.8 % (20.0-50.0); MEAN CORPUSCULAR HEMOGLOBIN 31.8 pg (28.0-32.0); MEAN CORPUSCULAR VOLUME 94.7 fL (80.0-94.0); MEAN PLATELET VOLUME 10.4 fl (7.4-10.4); MONOCYTES % 8.7 % (2.0-8.0); NEUTROPHILS % 73.5 % (40.0-76.0); PLATELET 176 x1000/uL (130-400); RED BLOOD CELL COUNT 2.75 mill/uL (4.7-6.1); RED CELL DISTRIBUTION WIDTH 14.2 % (11.6-14.6)
[2022-01-27 07:56] LABS: CHLORIDE 108 mEq/L (98-107)
[2022-01-27] MEDS: FERROUS SULFATE 325MG TABLET PO SCH ×3 (09:00→16:34)
[2022-01-27] MEDS: PHYTONADIONE 10MG/ML AMP SUBCUT SCH (09:24)
[2022-01-27] MEDS: METRONIDAZOLE 500 MG PREMIX 100 ML IV SCH ×2 (09:24→20:25)
[2022-01-27] MEDS: PANTOPRAZOLE SODIUM 40 MG/VIAL IV SCH ×2 (09:24→20:24)
[2022-01-27] MEDS: CEFEPIME 1,000 MG in DEXTROSE 5% WATER 50 ML IV SCH ×2 (09:24→20:25)
[2022-01-27 09:30] LABS: PHOSPHORUS 1.8 mg/dL (2.5-4.9)
[2022-01-27 09:36] LABS: BG BASE EXCESS 3.9 mmol/L (-2.0-2.0); BG CARBOXYHEMOGLOBIN 0.3 % (0.5-1.5); BG DEOXYHEMOGLOBIN 4.1 % (0.0-5.0); BG FRACTION INSPIRED OXYGEN 32; BG HCO3 ACT 29.5 mmol/L (22.0-26.0); BG METHEMOGLOBIN 0.3 % (0.0-1.5); BG OXYGEN SATURATION 95.9 % (92.0-98.5); BG OXYHEMOGLOBIN 95.3 % (94.0-97.0); BG PCO2 50.3 mmHg (35.0-45.0); BG PH 7.386 (7.350-7.450); BG PO2 89.7 mmHg (75.0-100.0); BG SAMPLE SITE RIGHT RADIAL; BG TOTAL HEMOGLOBIN 8.4 g/dL (12.0-18.0); BG VENT MODE NASAL CANNULA
[2022-01-27] MEDS: SODIUM CHLORIDE 3% FOR INH 4ML UD NEB INH SCH ×4 (12:26→20:31)
[2022-01-27] MEDS: VANCOMYCIN 500MG PREMIX 100 ML IV SCH ×2 (13:23→20:24)
[2022-01-27] MEDS ORDERED: POTASSIUM PHOS,M-BASIC-D-BASIC 30 MMOL in DEXT 5% WATER 500 ML IV ONE (15:00)
[2022-01-27 16:47] LABS: CHLORIDE 107 mEq/L (98-107)
[2022-01-27] MEDS: FAT EMULSIONS 250 ML IV SCH (20:25)
[2022-01-27] MEDS: TOTAL PARENTERAL NUTRITION 1,400 ML IV SCH (20:26)
[2022-01-28] VITALS (12 sets, daily range): BP systolic 81–117; BP diastolic 36–62
[2022-01-28] MEDS: IPRATROPIUM/ALBUTEROL 0.5-3(2.5)MG/3ML NEB HHN SCH ×7 (01:00→23:00)
[2022-01-28] MEDS: FAT EMULSIONS 250 ML IV SCH (01:45)
[2022-01-28] MEDS: VANCOMYCIN 500MG PREMIX 100 ML IV SCH ×3 (03:42→21:36)
[2022-01-28] MEDS: BLOOD SUGAR DIAGNOSTIC STRIP TEST SCH ×3 (05:46→17:22)
[2022-01-28] MEDS: LACTULOSE 20G/30ML UDC PR SCH ×3 (05:46→21:42)
[2022-01-28] MEDS: INSULIN LISPRO 100 UNITS/ML SUBCUT SCH ×3 (05:46→17:22)
[2022-01-28 07:02] LABS: BASOPHILS % 0.2 % (0.0-2.0); EOSINOPHILS % 5.1 % (0.0-5.0); HEMATOCRIT. 27.9 % (42.0-52.0); HEMOGLOBIN. 9.9 g/dL (14.0-18.0); LYMPHOCYTES % 9.5 % (20.0-50.0); MEAN CORPUSCULAR HEMOGLOBIN 34.5 pg (28.0-32.0); MEAN PLATELET VOLUME 9.8 fl (7.4-10.4); MONOCYTES % 7.5 % (2.0-8.0); NEUTROPHILS % 77.7 % (40.0-76.0); PLATELET 219 x1000/uL (130-400); RED BLOOD CELL COUNT 2.88 mill/uL (4.7-6.1); RED CELL DISTRIBUTION WIDTH 15.3 % (11.6-14.6)
[2022-01-28 07:25] LABS: CHLORIDE 105 mEq/L (98-107)
[2022-01-28] MEDS: SODIUM CHLORIDE 3% FOR INH 4ML UD NEB INH SCH ×2 (08:04)
[2022-01-28] MEDS: PANTOPRAZOLE SODIUM 40 MG/VIAL IV SCH ×2 (08:26→21:08)
[2022-01-28] MEDS: FERROUS SULFATE 325MG TABLET PO SCH ×4 (08:26→17:29)
[2022-01-28] MEDS: METRONIDAZOLE 500 MG PREMIX 100 ML IV SCH ×2 (08:27→20:45)
[2022-01-28] MEDS: CEFEPIME 1,000 MG in DEXTROSE 5% WATER 50 ML IV SCH ×2 (08:27→20:43)
[2022-01-28] MEDS ORDERED: SODIUM PHOS,M-BASIC-D-BASIC 20 MM in DEXT 5% WATER 243.3333 ML IV SCH (10:00)
[2022-01-28] MEDS: TOTAL PARENTERAL NUTRITION 1,400 ML IV SCH (21:13)
[2022-01-29] VITALS (12 sets, daily range): BP systolic 91–147; BP diastolic 55–99
[2022-01-29] MEDS: SODIUM CHLORIDE 3% FOR INH 4ML UD NEB INH SCH ×4 (00:30→20:31)
[2022-01-29] MEDS: BLOOD SUGAR DIAGNOSTIC STRIP TEST SCH ×4 (00:44→18:42)
[2022-01-29] MEDS: IPRATROPIUM/ALBUTEROL 0.5-3(2.5)MG/3ML NEB HHN SCH ×5 (03:00→20:30)
[2022-01-29] MEDS: LACTULOSE 20G/30ML UDC PR SCH ×3 (05:34→20:20)
[2022-01-29] MEDS: INSULIN LISPRO 100 UNITS/ML SUBCUT SCH ×4 (05:42→18:00)
[2022-01-29 06:40] LABS: BASOPHILS % 0.5 % (0.0-2.0); EOSINOPHILS % 6.5 % (0.0-5.0); HEMATOCRIT. 27.4 % (42.0-52.0); HEMOGLOBIN. 9.2 g/dL (14.0-18.0); LYMPHOCYTES % 11.9 % (20.0-50.0); MEAN CORPUSCULAR HEMOGLOBIN 31.8 pg (28.0-32.0); MEAN CORPUSCULAR VOLUME 94.2 fL (80.0-94.0); MEAN PLATELET VOLUME 9.9 fl (7.4-10.4); MONOCYTES % 10.1 % (2.0-8.0); PLATELET 187 x1000/uL (130-400); RED BLOOD CELL COUNT 2.91 mill/uL (4.7-6.1); RED CELL DISTRIBUTION WIDTH 14.9 % (11.6-14.6)
[2022-01-29 07:06] LABS: CHLORIDE 103 mEq/L (98-107)
[2022-01-29 07:13] LABS: PHOSPHORUS 1.9 mg/dL (2.5-4.9)
[2022-01-29] MEDS: FERROUS SULFATE 325MG TABLET PO SCH ×3 (08:36→17:00)
[2022-01-29] MEDS: PANTOPRAZOLE SODIUM 40 MG/VIAL IV SCH ×2 (08:36→20:20)
[2022-01-29] MEDS: CEFEPIME 1,000 MG in DEXTROSE 5% WATER 50 ML IV SCH (08:37)
[2022-01-29] MEDS ORDERED: POTASSIUM PHOS,M-BASIC-D-BASIC 30 MMOL in DEXT 5% WATER 500 ML IV NR (09:30)
[2022-01-29] MEDS: FAT EMULSIONS 250 ML IV SCH (20:20)
[2022-01-29] MEDS: TOTAL PARENTERAL NUTRITION 1,400 ML IV SCH (20:20)
[2022-01-30] VITALS (11 sets, daily range): BP systolic 97–138; BP diastolic 46–68
[2022-01-30] MEDS: IPRATROPIUM/ALBUTEROL 0.5-3(2.5)MG/3ML NEB HHN SCH ×5 (00:06→16:20)
[2022-01-30] MEDS: BLOOD SUGAR DIAGNOSTIC STRIP TEST SCH ×4 (00:47→17:50)
[2022-01-30] MEDS: FAT EMULSIONS 250 ML IV SCH (01:00)
[2022-01-30] MEDS: SODIUM CHLORIDE 3% FOR INH 4ML UD NEB INH SCH ×3 (02:06→12:00)
[2022-01-30] MEDS: LACTULOSE 20G/30ML UDC PR SCH ×2 (05:06→13:05)
[2022-01-30] MEDS: INSULIN LISPRO 100 UNITS/ML SUBCUT SCH ×4 (05:08→17:50)
[2022-01-30 06:47] LABS: CHLORIDE 104 mEq/L (98-107)
[2022-01-30 06:56] LABS: PHOSPHORUS 2.1 mg/dL (2.5-4.9)
[2022-01-30] MEDS: FERROUS SULFATE 325MG TABLET PO SCH ×3 (08:06→17:00)
[2022-01-30] MEDS: PANTOPRAZOLE SODIUM 40 MG/VIAL IV SCH (08:06)
[2022-01-30 08:59] LABS: BASOPHILS % 0.1 % (0.0-2.0); EOSINOPHILS % 3.4 % (0.0-5.0); HEMATOCRIT. 34.6 % (42.0-52.0); HEMOGLOBIN. 11.2 g/dL (14.0-18.0); LYMPHOCYTES % 14.2 % (20.0-50.0); MEAN CORPUSCULAR HEMOGLOBIN 32.6 pg (28.0-32.0); MEAN PLATELET VOLUME 9.9 fl (7.4-10.4); MONOCYTES % 8.8 % (2.0-8.0); NEUTROPHILS % 73.5 % (40.0-76.0); PLATELET 202 x1000/uL (130-400); RED BLOOD CELL COUNT 3.43 mill/uL (4.7-6.1); RED CELL DISTRIBUTION WIDTH 16.6 % (11.6-14.6)
[2022-01-30] MEDS ORDERED: SODIUM PHOS,M-BASIC-D-BASIC 30 MM in DEXT 5% WATER 500 ML IV NR (09:30)
== END 2022-01-30 21:57 | DRG 393 ==
LOC: ER 11:16 → 8WST 16:46 → EDBEDREQ 16:49 → ENRESERV 20:42 → 5EST 01-20 08:46
PROVIDERS: ADMIT Specialist; ATTEND Specialist
PROC: 05HY33Z Insertion of Infusion Device into Upper Vein, Percutaneous Approach (ICD-10-PCS; 2022-01-14)
PROC: B54MZZA Ultrasonography of Right Upper Extremity Veins, Guidance (ICD-10-PCS; 2022-01-14)
PROC: 4A00X4Z Measurement of Central Nervous Electrical Activity, External Approach (ICD-10-PCS; principal; 2022-01-16)
PROC: 02HV33Z Insertion of Infusion Device into Superior Vena Cava, Percutaneous Approach (ICD-10-PCS; 2022-01-20)
PROC: B548ZZA Ultrasonography of Superior Vena Cava, Guidance (ICD-10-PCS; 2022-01-20)
DX: K94.22 Gastrostomy infection (principal); A41.02 Sepsis due to Methicillin resistant Staphylococcus aureus; G82.50 Quadriplegia, unspecified; G92.8 Other toxic encephalopathy; J96.01 Acute respiratory failure with hypoxia; J69.0 Pneumonitis due to inhalation of food and vomit; R65.20 Severe sepsis without septic shock; E87.2 Acidosis; N39.0 Urinary tract infection, site not specified; E87.0 Hyperosmolality and hypernatremia; J98.11 Atelectasis; E44.1 Mild protein-calorie malnutrition; E72.20 Disorder of urea cycle metabolism, unspecified; E87.1 Hypo-osmolality and hyponatremia; E87.4 Mixed disorder of acid-base balance; J44.0 Chronic obstructive pulmonary disease with (acute) lower respiratory infection; L03.311 Cellulitis of abdominal wall; R47.01 Aphasia; L02.211 Cutaneous abscess of abdominal wall; J44.1 Chronic obstructive pulmonary disease with (acute) exacerbation; Z20.822 Contact with and (suspected) exposure to COVID-19; E87.8 Other disorders of electrolyte and fluid balance, not elsewhere classified; R62.50 Unspecified lack of expected normal physiological development in childhood; E78.00 Pure hypercholesterolemia, unspecified; K57.90 Diverticulosis of intestine, part unspecified, without perforation or abscess without bleeding; K58.9 Irritable bowel syndrome, unspecified; K21.9 Gastro-esophageal reflux disease without esophagitis; D50.9 Iron deficiency anemia, unspecified; E11.9 Type 2 diabetes mellitus without complications; E83.52 Hypercalcemia; E87.6 Hypokalemia; M41.85 Other forms of scoliosis, thoracolumbar region; R13.10 Dysphagia, unspecified; R74.01 Elevation of levels of liver transaminase levels; I10 Essential (primary) hypertension; M24.59 Contracture, other specified joint; Z88.8 Allergy status to other drugs, medicaments and biological substances; Z79.4 Long term (current) use of insulin; Z68.26 Body mass index [BMI] 26.0-26.9, adult
CPT/HCPCS: 36415; 36573; 36600; 71045; 74018; 74176; 76705; 80048; 80053; 80061; 80076; 80202; 80305; 80320; 81003; 82010; 82140; 82375; 82465; 82550; 82607; 82728; 82746; 82805; 82962; 83036; 83540; 83550; 83605; 83735; 83880; 84100; 84134; 84145; 84295; 84439; 84443; 84478; 84481; 84484; 85025; 87070; 87077; 87106; 87186; 87426; 93005; 93306; 94640; 94667; 97161; 97162; 97166; 99285; C1725; C9113; J0692; J0696; J1650; J1815; J2543; J3370; J3430; J3480; J3490; J7030; J7050; J7060; J7070; J7120; J7608; G0480